=== PATIENT | female | born 1990 | race Caucasian/White ===

== ENCOUNTER 2016-04-22 01:50 | Emergency (ER) | payer OTHER ==
[~2016-04-22 01:50] MED LIST: ACETAMINOPHEN; AMOXICILLIN500 M1 PO; DOXYCYCLINE HY100 M1 PO; DOXYCYCLINE150 MG PO; FLAGYL PO; IBUPROFEN PO; IBUPROFEN800 MG PO; MACROBID100 M1 PO; NARCAN4 MG INH; NO MEDICATIONS; PARAFON FORTE500 MG PO; ULTRAM PO; VICODIN 5/1 TAB 5/50 PO; VOLTAREN75 MG PO
== END 2016-04-22 02:44 | disposition home or self-care (01) ==
LOC: SED 01:50
DX: L02.413 Cutaneous abscess of right upper limb (principal); R01.1 Cardiac murmur, unspecified; F17.200 Nicotine dependence, unspecified, uncomplicated; F19.10 Other psychoactive substance abuse, uncomplicated
CPT/HCPCS: 10060; 87070; 87205; 99283